=== PATIENT | female | born 1945 | race Two or more races ===

== ENCOUNTER 2025-02-02 10:17 | Inpatient (IN) | payer MEDICARE, OTHER ==
[~2025-02-02] VITALS: Ht 170.2 cm; Wt 89.8 kg
[2025-02-02] MEDS: IV NS 0.9% 1,000 ML BAG IV ONE (10:52)
[2025-02-02 10:54] LABS: EOSINOPHILS # (AUTO) 0.2 K/uL (0.0-0.7); LYMPHOCYTES # (AUTO) 0.9 K/uL (0.8-4.8); MONOCYTES # (AUTO) 0.2 K/uL (0.1-1.30); NEUTROPHILS # (AUTO) 1.9 K/uL (1.8-8.9)
[2025-02-02 10:58] LABS: BASOPHILS % (AUTO) 0.5 % (0.0-2.0); EOSINOPHILS % (AUTO) 6.4 % (0.0-6.0); HEMATOCRIT 36 % (33-45); HEMOGLOBIN 11.3 g/dL (11.5-14.8); LYMPHOCYTES % (AUTO) 27.7 % (20.0-44.0); MEAN CORPUSCULAR HEMOGLOBIN 21 PG (26.0-33.0); MEAN CORPUSCULAR HGB CONC 32 g/dl (31.0-36.0); MEAN CORPUSCULAR VOLUME 67 fL (82-100); MONOCYTES % (AUTO) 6.7 % (2.0-12.0); NEUTROPHILS % (AUTO) 58.7 % (43.0-81.0); PLATELET COUNT (AUTO) 195 K/uL (150-450); RED BLOOD CELL COUNT(AUTO) 5.37 MIL/uL (4.0-5.2); WHITE BLOOD COUNT (AUTO) 3.2 K/uL (4.3-11.0)
[2025-02-02 11:02] LABS: CARBON DIOXIDE 28 mmol/L (21-32); CHLORIDE 106 mmol/L (98-107); CREATININE 1.1 mg/dL (0.6-1.3); GLUCOSE 137 mg/dL (74-106); POTASSIUM 3.6 mmol/L (3.5-5.1); SODIUM SERUM 139 mmol/L (136-145); UREA NITROGEN, BLOOD 19 mg/dL (7-18)
[2025-02-02 11:09] LABS: LACTIC ACID 1.8 mmol/L (0.4-2.0)
[2025-02-02 11:16] LABS: ALANINE AMINOTRANSFERASE 24 U/L (12-78); ALBUMIN 3.1 g/dL (3.4-5.0); ALKALINE PHOSPHATASE 65 U/L (46-116); ASPARTATE AMINOTRANSFERASE 20 U/L (15-37); BILIRUBIN,DIRECT 0.2 mg/dL (0.0-0.2)
[2025-02-02 11:48] LABS: EOSINOPHILS % (MANUAL) 5 % (0-4); LYMPHOCYTES % (MANUAL) 27 % (16-48); MONOCYTES % (MANUAL) 1 % (0-11.0); NEUTROPHILS % (MANUAL) 67 (42-76); PLATELET ESTIMATE ADEQUATE
[2025-02-02 11:49] LABS: ANISOCYTOSIS 1+; OVALOCYTES 1+
[2025-02-02] MEDS ORDERED: SEMA0.25 SQ (11:54)
[2025-02-02] MEDS ORDERED: CITA20TA16 PO (11:54)
[2025-02-02] MEDS ORDERED: BREX0.25 PO (11:54)
[2025-02-02] MEDS ORDERED: EZET10TA32 PO (11:54)
[2025-02-02] MEDS ORDERED: GEMTESA PO (11:54)
[2025-02-02] MEDS ORDERED: LOSA25TA27 PO (11:54)
[2025-02-02] MEDS ORDERED: DONE23TA3 PO (11:54)
[2025-02-02] MEDS ORDERED: AMLO-213 PO (11:54)
[2025-02-02] MEDS ORDERED: MEMA10TA56 PO (11:54)
[2025-02-02] MEDS ORDERED: OMEP40CA21 PO (11:54)
[2025-02-02] MEDS ORDERED: MELO-107 PO (11:54)
[2025-02-02] MEDS ORDERED: ACET-637 PO (11:54)
[2025-02-02 12:00] LABS: APPEARANCE,URINE SLIGHTLY CLOUDY (CLEAR); BILIRUBIN,URINE SMALL (NEGATIVE); BLOOD, URINE Negative Ery/uL (NEGATIVE); COLOR,URINE YELLOW (YELLOW); KETONES,URINE Negative (NEGATIVE); LEUKOCYTE ESTERASE ,URINE Negative (NEGATIVE); PH,URINE 5.5 (5.0-8.0); PROTEIN,URINE 30 mg/dl (NEGATIVE); UGLUCOSE Negative (NEGATIVE)
[2025-02-02] MEDS ORDERED: CEFTRIAXONE 1GM BAG (ER ONLY) 50 ML IV ONE (12:00)
[2025-02-02] MEDS: CEFTRIAXONE 1GM BAG (ER ONLY) 1 GM/50 ML PIGGYBACK IV ONE (12:03)
[2025-02-02 12:20] LABS: NITRITE, URINE NEGATIVE (NEGATIVE)
[2025-02-02 12:22] LABS: ADD URINE CULTURE NO; BACTERIA,URINE Few /HPF (None Seen); MUCUS,URINE Few /LPF (None Seen); RBC,URINE 0-2 /HPF (0-2); SQUAMOUS EPITHELIAL CELL,UR Few /HPF (None Seen); WBC,URINE 0-2 /HPF (0-3)
[2025-02-02 12:23] LABS: CALCIUM OXALATE CRYSTALS,UR Moderate /HPF (None Seen)
[2025-02-02 13:00] VITALS: BP 136/72; TEMP 98.4; O2SAT 97
== END 2025-02-02 16:55 | disposition home or self-care (01) | DRG 948 ==
LOC: ER 10:20 → MEDSG1 12:30
PROVIDERS: ADMIT Nurse Practitioner Acute Care; ATTEND Nurse Practitioner Acute Care
DX: R53.1 Weakness (principal); F02.82 Dementia in other diseases classified elsewhere, unspecified severity, with psychotic disturbance; F02.83 Dementia in other diseases classified elsewhere, unspecified severity, with mood disturbance; N32.81 Overactive bladder; F32.A Depression, unspecified; E66.9 Obesity, unspecified; G30.9 Alzheimer's disease, unspecified; E11.9 Type 2 diabetes mellitus without complications; Z85.42 Personal history of malignant neoplasm of other parts of uterus; Z90.710 Acquired absence of both cervix and uterus; I10 Essential (primary) hypertension; Z79.85 Long-term (current) use of injectable non-insulin antidiabetic drugs; Z79.899 Other long term (current) drug therapy; E78.5 Hyperlipidemia, unspecified; F29 Unspecified psychosis not due to a substance or known physiological condition; Z68.31 Body mass index [BMI] 31.0-31.9, adult; D63.8 Anemia in other chronic diseases classified elsewhere
CPT/HCPCS: 36415; 70450-TC; 71045-TC; 80048-TC; 80076-TC; 81001; 82533; 83605-TC; 84443-TC; 84484-TC; 85025-TC; 87040-TC; 87086-TC; G0378; J0696; J7030